=== PATIENT | female | born 1985 | race African-American/Black ===

== ENCOUNTER 2017-12-03 21:25 | Observation (INO) ==
[2017-12-03] MEDS ORDERED: ONDANSETRON 4 MG/2 ML VIAL IV ONE (22:08)
[2017-12-03] MEDS ORDERED: MEPERIDINE 50 MG/1 ML VIAL IV ONE (22:08)
[2017-12-03] MEDS ORDERED: hydrALAZINE 20 MG/1 ML VIAL IV ONE (22:08)
[2017-12-03] MEDS: LACTATED RINGERS 1,000 ML IV SCH (22:42)
[2017-12-03 22:54] LABS: Basophils % 0.6 % (0.0-0.8); Eosinophils # 0.1 10*3/uL (0.0-0.87); Eosinophils % 1.5 % (0.00-10.9); Hematocrit 33.2 VOL% (35.7-47.0); Hemoglobin 9.4 GM/DL (12.0-16.0); Immature Granulocytes % 0.4 %; Immature Granulocytes Absolute 0.03 #; Lymphocytes # 1.5 10*3/uL (1.4-4.0); Lymphocytes % 21.3 % (21.3-54.2); Mean Corpuscular HGB Conc 28.3 GM/DL (32-36); Mean Corpuscular Hemoglobin 19 PG (27-34); Mean Corpuscular Volume 66.8 FL (87-102); Mean Platelet Volume 9.5 FL (9.6-12.0); Monocytes # 0.7 10*3/uL (0.11-0.8); Neutrophils # 4.9 10*3/uL (1.4-7.4); Neutrophils % 67.2 % (38.7-73.9); Platelet Count 285 T/CUMM (130-400); Red Blood Count 4.97 MC/CUMM (3.8-5.5); Red Cell Distribution Width 17.4 % (9.3-17.3); White Blood Count 7.2 T/CUMM (4-12)
[2017-12-03 23:05] LABS: Apearance,Urine Slightly Hazy (Clear); Bilirubin,Urine Negative (Negative); Blood, Urine Negative (Negative); Glucose,Urine (UA) Negative (Negative); Ketones,Urine Negative (Negative); Mucus,Urine Occasional /LPF (Occasional); Nitrite,Urine Negative (Negative); Protein,Urine 30 MG/DL; RBC,Urine 1 /HPF (0-4); Squamous Epithelial Cell,Urine Occasional /HPF (0-10); Urine Color Yellow (Yellow); Urine Specific Gravity 1.012 (1.001-1.035); WBC,Urine 2 /HPF (0-6)
[2017-12-03 23:39] LABS: Albumin 2.4 G/DL (3.4-5.0); Bilirubin,Total 0.4 MG/DL (0.2-1.0); Calcium 8.7 MG/DL (8.5-10.1); Osmolality,Calculated 273.5 MOS/KG (273-304); Potassium 3.8 MMOL/L (3.5-5.1); Total Protein 6.1 G/DL (6.4-8.3); Uric Acid 3.4 MG/DL (2.6-6.0)
[2017-12-03 23:54] LABS: Anisocytosis 1+; Hypochromasia 1+; Poikilocytosis 1+; Polychromasia 1+
[2017-12-04] MEDS ORDERED: hydrALAZINE 20 MG/1 ML VIAL IV ONE
[2017-12-04] MEDS: LABETALOL 200 MG TABLET PO SCH ×3 (00:04→19:46)
[2017-12-04] MEDS: LACTATED RINGERS 1,000 ML IV SCH (09:08)
[2017-12-04] MEDS ORDERED: BETAMETH SODIUM PHOS/ACETATE 30 MG/5 ML VIAL IM SCH (09:30)
[2017-12-04 12:56] VITALS: BP 149/83
[2017-12-04] MEDS ORDERED: LABETALOL 200 MG TABLET PO ONE (17:55)
== END 2017-12-04 19:48 | disposition left against medical advice (07) ==
LOC: N.LD 21:25 → N.LDOUT 21:25 → N.LD 21:29
PROVIDERS: ADMIT Obstetrics & Gynecology; ATTEND Obstetrics & Gynecology

== ENCOUNTER 2017-12-12 13:56 | Inpatient (IN) ==
[2017-12-12] MEDS ORDERED: hydrALAZINE 20 MG/1 ML VIAL IV ONE ×2 (14:51→18:30)
[2017-12-12] MEDS ORDERED: LACTATED RINGERS 1,000 ML IV SCH ×2 (15:00→22:00)
[2017-12-12] MEDS ORDERED: LABETALOL 200 MG TABLET PO SCH (15:00)
[2017-12-12 15:19] LABS: Basophils % 0.3 % (0.0-0.8)
[2017-12-12 15:27] LABS: Eosinophils # 0.1 10*3/uL (0.0-0.87); Hematocrit 29.2 VOL% (35.7-47.0); Hemoglobin 8.4 GM/DL (12.0-16.0); Immature Granulocytes % 0.5 %; Immature Granulocytes Absolute 0.04 #; Lymphocytes # 1.1 10*3/uL (1.4-4.0); Lymphocytes % 15.5 % (21.3-54.2); Mean Corpuscular HGB Conc 28.8 GM/DL (32-36); Mean Corpuscular Hemoglobin 19 PG (27-34); Mean Corpuscular Volume 67.3 FL (87-102); Monocytes # 0.5 10*3/uL (0.11-0.8); Monocytes % 7.3 % (1.7-12.7); Neutrophils # 5.6 10*3/uL (1.4-7.4); Neutrophils % 75.4 % (38.7-73.9); Platelet Count 283 T/CUMM (130-400); Red Blood Count 4.34 MC/CUMM (3.8-5.5); Red Cell Distribution Width 17.6 % (9.3-17.3); White Blood Count 7.4 T/CUMM (4-12)
[2017-12-12 15:36] LABS: INR 0.9; PT Patient Result 9.5 SECS; Partial Thromboplastin Time 25.4 SECS (0-40)
[2017-12-12 15:47] LABS: Alanine Aminotransferase 17 U/L (13-56); Albumin 2.4 G/DL (3.4-5.0); Alkaline Phosphatase 102 U/L (45-117); Aspartate Amino Transferase 24 U/L (0-37); Bilirubin,Total < 0.39 MG/DL (0.2-1.0); Blood Urea Nitrogen 5 MG/DL (7-18); Calcium 8.5 MG/DL (8.5-10.1); Glucose 157 MG/DL (74-106); Osmolality,Calculated 276.5 MOS/KG (273-304); Potassium 3.7 MMOL/L (3.5-5.1); Sodium 139 MMOL/L (136-145); Total Protein 6.1 G/DL (6.4-8.3)
[2017-12-12 15:55] LABS: Anisocytosis 1+; Platelet Estimate Normal; Polychromasia 1+
[2017-12-12] MEDS ORDERED: hydrALAZINE 20 MG/1 ML VIAL IV PRN (18:46)
[2017-12-12] MEDS ORDERED: MAGNESIUM SULF RIDER 4 GM in PREMIX 1 EACH IV ONE (18:46)
[2017-12-12] MEDS ORDERED: MAGNESIUM SULF DRIP 40 GM/1,000 ML ML IV SCH (19:00)
[2017-12-12 19:43] LABS: Apearance,Urine CLEAR (Clear); Bilirubin,Urine Negative (Negative); Blood, Urine Negative (Negative); Glucose,Urine (UA) Negative (Negative); Ketones,Urine 5 mg/dL (Negative); Mucus,Urine Occasional /LPF (Occasional); Nitrite,Urine Negative (Negative); Protein,Urine 30 MG/DL; RBC,Urine 2 /HPF (0-4); Squamous Epithelial Cell,Urine Occasional /HPF (0-10); Urine Color Yellow (Yellow); Urine Specific Gravity 1.018 (1.001-1.035); WBC,Urine <1 /HPF (0-6)
[2017-12-12] MEDS ORDERED: FAMOTIDINE 20 MG/2 ML VIAL IV ONE (20:00)
[2017-12-12] MEDS ORDERED: CITRIC ACID/SODIUM CITRATE 30 ML UDCUP PO ONE (20:00)
[2017-12-12] MEDS ORDERED: OXYTOCIN/LR 30 UNIT/1,000 ML BAG IV ONE (20:30)
[2017-12-12] MEDS ORDERED: OXYTOCIN 10 UNIT/ML VIAL IM ONE (20:30)
[2017-12-12] MEDS ORDERED: fentaNYL 100 MCG/2 ML VIAL ONE (20:38)
[2017-12-12] MEDS ORDERED: OXYTOCIN/LR 20 UNIT/1,000 ML BAG IV ONE ×2 (20:38→21:39)
[2017-12-12] MEDS ORDERED: MORPHINE 10 MG/10 ML VIAL ONE (20:38)
[2017-12-12] MEDS ORDERED: OXYTOCIN 10 UNIT/ML VIAL ONE ×2 (20:38→20:50)
[2017-12-12] MEDS ORDERED: BUPIVACAINE SPINAL 0.75% 2 ML AMP SPINAL ONE (20:38)
[2017-12-12] MEDS ORDERED: FUROSEMIDE 40 MG/4 ML VIAL ONE (21:25)
[2017-12-12 21:31] LABS: Cord Venous Blood HCO3 23.3 MMOL/L; Cord Venous Blood PCO2 48.7 MMHG; Cord Venous Blood PO2 24.3
[2017-12-12 21:39] LABS: Cord Arterial Blood HCO3 22.1 MMOL/L
[2017-12-12] MEDS ORDERED: ONDANSETRON 4 MG/2 ML VIAL IV PRN (21:39)
[2017-12-12] MEDS ORDERED: DEXTROSE 50% 25 GM/50 ML VIAL IV PRN (21:39)
[2017-12-12] MEDS ORDERED: ACETAMINOPHEN 325 MG TABLET PO PRN (21:39)
[2017-12-12] MEDS ORDERED: GLUCAGON 1 MG VIAL IM PRN (21:39)
[2017-12-12] MEDS ORDERED: MAGNESIUM HYDROXIDE SUSP 30 ML UDCUP PO PRN (21:39)
[2017-12-12] MEDS ORDERED: SIMETHICONE CHEW 80 MG TABLET PO PRN (21:39)
[2017-12-12] MEDS ORDERED: RHO(D) IMMUNE GLOBULIN 300 MCG SYRINGE IM ONE (21:39)
[2017-12-13] MEDS: FUROSEMIDE 40 MG/4 ML VIAL IV SCH ×4 (02:57→18:15)
[2017-12-13] MEDS ORDERED: ceFAZolin 2,000 MG in PREMIX 1 EACH IV ONE (07:00)
[2017-12-13 07:42] LABS: Basophils % 0.2 % (0.0-0.8); Eosinophils % 0.3 % (0.00-10.9); Hematocrit 32.1 VOL% (35.7-47.0); Hemoglobin 9.5 GM/DL (12.0-16.0); Immature Granulocytes % 0.4 %; Immature Granulocytes Absolute 0.05 #; Lymphocytes % 7.9 % (21.3-54.2); Mean Corpuscular HGB Conc 29.6 GM/DL (32-36); Mean Corpuscular Hemoglobin 19 PG (27-34); Mean Corpuscular Volume 64.6 FL (87-102); Monocytes # 0.7 10*3/uL (0.11-0.8); Monocytes % 6.1 % (1.7-12.7); Neutrophils # 10.4 10*3/uL (1.4-7.4); Neutrophils % 85.1 % (38.7-73.9); Platelet Count 342 T/CUMM (130-400); Red Blood Count 4.97 MC/CUMM (3.8-5.5); Red Cell Distribution Width 18.3 % (9.3-17.3); White Blood Count 12.2 T/CUMM (4-12)
[2017-12-13] MEDS: DOCUSATE SODIUM 100 MG CAPSULE PO SCH ×2 (08:46→22:42)
[2017-12-13] MEDS: MULTIVITAMIN (PRENATAL) TABLET PO SCH (08:46)
[2017-12-13] MEDS ORDERED: GLUCAGON 1 MG VIAL IM PRN (16:52)
[2017-12-13] MEDS ORDERED: DEXTROSE 50% 25 GM/50 ML VIAL IV PRN (16:52)
[2017-12-13] MEDS: INSULIN REGULAR 100 UNIT/ML SUBCUT SCH (18:42)
[2017-12-14] MEDS: IBUPROFEN 800 MG TABLET PO PRN ×3 (04:31→23:59)
[2017-12-14] MEDS: INSULIN REGULAR 100 UNIT/ML SUBCUT SCH ×3 (06:29→15:05)
[2017-12-14] MEDS: MULTIVITAMIN (PRENATAL) TABLET PO SCH (09:54)
[2017-12-14] MEDS: DOCUSATE SODIUM 100 MG CAPSULE PO SCH ×2 (09:54→20:32)
[2017-12-15] MEDS: INSULIN REGULAR 100 UNIT/ML SUBCUT SCH ×2 (06:54→18:36)
[2017-12-15] MEDS ORDERED: ACETAMINOPHEN/CODEINE 300-30 MG TABLET PO PRN (08:45)
[2017-12-15] MEDS: MULTIVITAMIN (PRENATAL) TABLET PO SCH (08:52)
[2017-12-15] MEDS: DOCUSATE SODIUM 100 MG CAPSULE PO SCH (08:52)
[2017-12-15] MEDS: IBUPROFEN 800 MG TABLET PO PRN (08:52)
[2017-12-15 13:44] VITALS: BP 162/92
[2017-12-15] MEDS ORDERED: DIPH/TET/ACEL PERT BOOSTER VACCINE 0.5 ML VIAL IM ONE (16:20)
== END 2017-12-15 18:15 | disposition home or self-care (01) | DRG 765 ==
LOC: N.LDOUT 13:56 → N.LD 13:58 → N.OB 12-13 16:39
PROVIDERS: ADMIT Obstetrics & Gynecology; ATTEND Obstetrics & Gynecology
PROC: LDCSECT (ICD-10-PCS; 2017-12-12 21:00)

== ENCOUNTER 2018-09-25 15:45 | Inpatient (IN) ==
[2018-09-25 16:29] LABS: Basophils % 0.4 % (0.0-0.8); Eosinophils # 0.2 10*3/uL (0.0-0.87); Eosinophils % 2.3 % (0.00-10.9); Hematocrit 32.4 VOL% (35.7-47.0); Hemoglobin 9.5 GM/DL (12.0-16.0); Immature Granulocytes % 0.6 %; Immature Granulocytes Absolute 0.04 #; Lymphocytes # 1.4 10*3/uL (1.4-4.0); Lymphocytes % 20.3 % (21.3-54.2); Mean Corpuscular HGB Conc 29.3 GM/DL (32-36); Mean Corpuscular Hemoglobin 20 PG (27-34); Mean Corpuscular Volume 69.7 FL (87-102); Monocytes # 0.5 10*3/uL (0.11-0.8); Neutrophils # 4.8 10*3/uL (1.4-7.4); Neutrophils % 69.4 % (38.7-73.9); Platelet Count 306 T/CUMM (130-400); Red Blood Count 4.65 MC/CUMM (3.8-5.5); Red Cell Distribution Width 16.3 % (9.3-17.3); White Blood Count 6.9 T/CUMM (4-12)
[2018-09-25 16:39] LABS: INR 0.9; PT Patient Result 9.5 SECS; Partial Thromboplastin Time 24.7 SECS (0-40)
[2018-09-25 16:52] LABS: Alanine Aminotransferase 14 U/L (13-56); Albumin 2.5 G/DL (3.4-5.0); Alkaline Phosphatase 119 U/L (45-117); Aspartate Amino Transferase 16 U/L (0-37); Bilirubin,Direct < 0.050 MG/DL (0.0-0.20); Bilirubin,Total < 0.39 MG/DL (0.2-1.0); Blood Urea Nitrogen 4 MG/DL (7-18); Calcium 8.2 MG/DL (8.5-10.1); Glucose 121 MG/DL (74-106); Osmolality,Calculated 270.8 MOS/KG (273-304); Potassium 3.1 MMOL/L (3.5-5.1); Sodium 137 MMOL/L (136-145); Total Protein 6.8 G/DL (6.4-8.3); Uric Acid 4.1 MG/DL (2.6-6.0)
[2018-09-25] MEDS: LACTATED RINGERS 1,000 ML IV SCH ×2 (17:29→20:30)
[2018-09-25] MEDS: hydrALAZINE 20 MG/1 ML VIAL IV PRN ×2 (17:53→18:27)
[2018-09-25] MEDS ORDERED: BETAMETH SODIUM PHOS/ACETATE 30 MG/5 ML VIAL IM SCH (18:00)
[2018-09-25] MEDS: LABETALOL 200 MG TABLET PO SCH ×3 (18:48→21:29)
[2018-09-25] MEDS ORDERED: hydrALAZINE 20 MG/1 ML VIAL IV ONE (19:54)
[2018-09-25] MEDS ORDERED: ACETAMINOPHEN 500 MG TABLET PO PRN (23:39)
[2018-09-25] MEDS ORDERED: MAGNESIUM SULF DRIP 40 GM/1,000 ML ML IV SCH (23:45)
[2018-09-26] MEDS ORDERED: CITRIC ACID/SODIUM CITRATE 30 ML UDCUP PO PRN (01:11)
[2018-09-26] MEDS ORDERED: ceFAZolin 3,000 MG in SYRINGE 1 EACH IV PRN (01:11)
[2018-09-26] MEDS ORDERED: FAMOTIDINE 20 MG/2 ML VIAL IV PRN (01:11)
[2018-09-26] MEDS ORDERED: LABETALOL 200 MG TABLET PO SCH (03:00)
[2018-09-26] MEDS ORDERED: ONDANSETRON 4 MG/2 ML VIAL ONE (04:01)
[2018-09-26] MEDS ORDERED: ONDANSETRON 4 MG/2 ML VIAL IV PRN (04:02)
[2018-09-26] MEDS ORDERED: OXYTOCIN/LR 30 UNIT/1,000 ML BAG IV PRN (04:38)
[2018-09-26] MEDS ORDERED: BETAMETH SODIUM PHOS/ACETATE 30 MG/5 ML VIAL IM SCH (06:00)
[2018-09-26] MEDS ORDERED: OXYTOCIN 10 UNIT/ML VIAL ONE (07:21)
[2018-09-26] MEDS ORDERED: LABETALOL 200 MG TABLET PO ONE (08:55)
[2018-09-26] MEDS: LACTATED RINGERS 1,000 ML IV SCH (09:50)
[2018-09-26] MEDS ORDERED: LIDOCAINE 1% 50 ML VIAL ONE (13:36)
[2018-09-26] MEDS ORDERED: miSOPROStol 200 MCG TABLET ONE (13:36)
[2018-09-26] MEDS ORDERED: METHYLERGONOVINE 0.2 MG/1 ML AMP ONE (13:37)
[2018-09-26] MEDS: LABETALOL 200 MG TABLET PO SCH ×2 (14:55→21:02)
[2018-09-26 20:28] LABS: Total Protein 24 Hr Ur Result 490 MG/24HR (0-149.1); Total Volume,Urine 700 ML (400-2000)
[2018-09-26 20:34] LABS: Creatinine 24 Hr Urine Result 1.32 G/24HR (0.60-1.80); Creatinine Clearance Urine 134.03 ML/MIN (70-115)
[2018-09-27] MEDS: LABETALOL 200 MG TABLET PO SCH ×4 (03:01→21:01)
[2018-09-27] MEDS ORDERED: BETAMETH SODIUM PHOS/ACETATE 30 MG/5 ML VIAL ONE (20:42)
[2018-09-28] MEDS: LABETALOL 200 MG TABLET PO SCH ×2 (03:10→09:08)
[2018-09-28 08:30] VITALS: BP 154/83
[2018-09-28] MEDS ORDERED: FLUTICASONE 50 MCG NASAL SPRAY 16 GM BOTTLE BOTH NARES SCH (12:30)
== END 2018-09-28 14:35 | disposition home or self-care (01) | DRG 833 ==
LOC: N.LDOUT 15:45 → N.LD 15:48 → N.OB 09-27 10:36
PROVIDERS: ADMIT Obstetrics & Gynecology; ATTEND Obstetrics & Gynecology

== ENCOUNTER 2018-09-30 16:22 | Inpatient (IN) ==
[2018-09-30 17:12] LABS: Apearance,Urine CLEAR (Clear); Bacteria,Urine Occasional /HPF (Few); Bilirubin,Urine Negative (Negative); Blood, Urine Negative (Negative); Glucose,Urine (UA) Negative (Negative); Ketones,Urine Negative (Negative); Mucus,Urine Occasional /LPF (Occasional); Nitrite,Urine Negative (Negative); Protein,Urine 100 MG/DL; RBC,Urine 1 /HPF (0-4); Squamous Epithelial Cell,Urine Occasional /HPF (0-10); Urine Color Yellow (Yellow); Urine Specific Gravity 1.012 (1.001-1.035); WBC,Urine 3 /HPF (0-6)
[2018-09-30] MEDS ORDERED: ACETAMINOPHEN 500 MG TABLET PO PRN (17:41)
[2018-09-30] MEDS: LABETALOL 200 MG TABLET PO SCH (21:51)
[2018-09-30] MEDS ORDERED: LABETALOL 200 MG TABLET PO SCH (22:00)
[2018-10-01] MEDS ORDERED: FAMOTIDINE 20 MG/2 ML VIAL IV PRN (00:11)
[2018-10-01] MEDS ORDERED: ceFAZolin 3,000 MG in SYRINGE 1 EACH IV PRN (00:11)
[2018-10-01] MEDS ORDERED: CITRIC ACID/SODIUM CITRATE 30 ML UDCUP PO PRN (00:11)
[2018-10-01] MEDS ORDERED: OXYTOCIN/LR 30 UNIT/1,000 ML BAG IV PRN (00:14)
[2018-10-01] MEDS ORDERED: hydrALAZINE 20 MG/1 ML VIAL IV ONE ×2 (00:38→00:48)
[2018-10-01 00:40] LABS: Basophils % 0.4 % (0.0-0.8); Eosinophils # 0.1 10*3/uL (0.0-0.87); Eosinophils % 0.9 % (0.00-10.9); Hematocrit 34.5 VOL% (35.7-47.0); Hemoglobin 10.1 GM/DL (12.0-16.0); Immature Granulocytes % 0.5 %; Immature Granulocytes Absolute 0.05 #; Lymphocytes # 1.9 10*3/uL (1.4-4.0); Lymphocytes % 19.8 % (21.3-54.2); Mean Corpuscular HGB Conc 29.3 GM/DL (32-36); Mean Corpuscular Hemoglobin 20 PG (27-34); Mean Platelet Volume 9.8 FL (9.6-12.0); Monocytes # 0.9 10*3/uL (0.11-0.8); Monocytes % 8.8 % (1.7-12.7); Neutrophils # 6.7 10*3/uL (1.4-7.4); Neutrophils % 69.6 % (38.7-73.9); Platelet Count 305 T/CUMM (130-400); Red Cell Distribution Width 16.3 % (9.3-17.3); White Blood Count 9.6 T/CUMM (4-12)
[2018-10-01] MEDS ORDERED: hydrALAZINE 20 MG/1 ML VIAL ONE (00:41)
[2018-10-01 00:59] LABS: Albumin 2.3 G/DL (3.4-5.0); Bilirubin,Total 0.4 MG/DL (0.2-1.0); Calcium 8.7 MG/DL (8.5-10.1); Potassium 3.1 MMOL/L (3.5-5.1); Total Protein 6.5 G/DL (6.4-8.3)
[2018-10-01] MEDS: LACTATED RINGERS 1,000 ML IV SCH ×2 (01:00→03:50)
[2018-10-01 01:54] LABS: INR 0.9; PT Patient Result 9.6 SECS; Partial Thromboplastin Time 25.1 SECS (0-40)
[2018-10-01] MEDS: LABETALOL 200 MG TABLET PO SCH (04:02)
[2018-10-01] MEDS ORDERED: OXYTOCIN 10 UNIT/ML VIAL IM ONE (07:27)
[2018-10-01 10:07] LABS: Cord Arterial Blood HCO3 29.9 MMOL/L
[2018-10-01 10:11] LABS: Cord Venous Blood HCO3 23.5 MMOL/L
[2018-10-01 10:12] LABS: Cord Venous Blood PO2 16.5
[2018-10-01 10:14] LABS: Apearance,Urine Slightly Hazy (Clear); Bilirubin,Urine Negative (Negative); Blood, Urine Negative (Negative); Glucose,Urine (UA) Negative (Negative); Ketones,Urine 5 mg/dL (Negative); Mucus,Urine Occasional /LPF (Occasional); Nitrite,Urine Negative (Negative); Protein,Urine 30 MG/DL; RBC,Urine <1 /HPF (0-4); Squamous Epithelial Cell,Urine Occasional /HPF (0-10); Urine Color Yellow (Yellow); Urine Specific Gravity 1.021 (1.001-1.035); Urine Urobilinogen < 2.0 EU/DL (0.2-1.0); WBC,Urine 1 /HPF (0-6)
[2018-10-01] MEDS ORDERED: RHO(D) IMMUNE GLOBULIN 300 MCG SYRINGE IM ONE (10:17)
[2018-10-01] MEDS ORDERED: ACETAMINOPHEN 325 MG TABLET PO PRN (10:17)
[2018-10-01] MEDS ORDERED: SIMETHICONE CHEW 80 MG TABLET PO PRN (10:17)
[2018-10-01] MEDS ORDERED: ONDANSETRON 4 MG/2 ML VIAL IV PRN (10:17)
[2018-10-01] MEDS ORDERED: OXYTOCIN/LR 20 UNIT/1,000 ML BAG IV ONE (10:17)
[2018-10-01] MEDS ORDERED: LACTATED RINGERS 1,000 ML IV SCH (10:30)
[2018-10-01] MEDS ORDERED: ceFAZolin 1,000 MG in SYRINGE 1 EACH IV SCH (10:30)
[2018-10-01] MEDS: FUROSEMIDE 40 MG/4 ML VIAL IV SCH ×3 (11:02→22:37)
[2018-10-01] MEDS ORDERED: PHENYLEPHRINE 1 MG/10 ML SYRINGE IV ONE (11:14)
[2018-10-01] MEDS ORDERED: MORPHINE 10 MG/10 ML VIAL ONE (11:15)
[2018-10-01] MEDS ORDERED: BUPIVACAINE SPINAL 0.75% 2 ML AMP SPINAL ONE (11:15)
[2018-10-01] MEDS: hydrALAZINE 20 MG/1 ML VIAL IV SCH ×2 (13:39→14:03)
[2018-10-01] MEDS: ceFAZolin 1,000 MG in SYRINGE 1 EACH IV SCH (17:19)
[2018-10-01] MEDS: POTASSIUM CHLORIDE RIDER 10 MEQ in PREMIX 1 EACH IV PRN ×4 (18:03→21:01)
[2018-10-01] MEDS ORDERED: diphenhydrAMINE CAP 25 MG CAPSULE PO PRN (18:09)
[2018-10-01 20:10] LABS: Basophils % 0.3 % (0.0-0.8); Eosinophils % 0.3 % (0.00-10.9); Hematocrit 35.8 VOL% (35.7-47.0); Immature Granulocytes % 0.5 %; Immature Granulocytes Absolute 0.06 #; Lymphocytes # 1.3 10*3/uL (1.4-4.0); Lymphocytes % 11.6 % (21.3-54.2); Mean Corpuscular HGB Conc 28.8 GM/DL (32-36); Mean Corpuscular Hemoglobin 20 PG (27-34); Mean Corpuscular Volume 70.1 FL (87-102); Mean Platelet Volume 10.1 FL (9.6-12.0); Monocytes # 0.8 10*3/uL (0.11-0.8); Monocytes % 6.6 % (1.7-12.7); Neutrophils # 9.2 10*3/uL (1.4-7.4); Neutrophils % 80.7 % (38.7-73.9); Platelet Count 292 T/CUMM (130-400); Red Blood Count 5.11 MC/CUMM (3.8-5.5); Red Cell Distribution Width 16.3 % (9.3-17.3); White Blood Count 11.4 T/CUMM (4-12)
[2018-10-01 20:11] LABS: Hemoglobin 10.3 GM/DL (12.0-16.0)
[2018-10-02] MEDS: DOCUSATE SODIUM 100 MG CAPSULE PO SCH ×3 (00:17→20:46)
[2018-10-02] MEDS: ceFAZolin 1,000 MG in SYRINGE 1 EACH IV SCH (01:20)
[2018-10-02 05:20] LABS: Basophils % 0.3 % (0.0-0.8); Eosinophils # 0.2 10*3/uL (0.0-0.87); Eosinophils % 1.2 % (0.00-10.9); Hematocrit 30.9 VOL% (35.7-47.0); Hemoglobin 9.1 GM/DL (12.0-16.0); Immature Granulocytes % 0.4 %; Immature Granulocytes Absolute 0.05 #; Lymphocytes # 1.8 10*3/uL (1.4-4.0); Lymphocytes % 12.8 % (21.3-54.2); Mean Corpuscular HGB Conc 29.4 GM/DL (32-36); Mean Corpuscular Hemoglobin 20 PG (27-34); Mean Corpuscular Volume 68.7 FL (87-102); Mean Platelet Volume 9.8 FL (9.6-12.0); Monocytes # 0.8 10*3/uL (0.11-0.8); Neutrophils # 11.1 10*3/uL (1.4-7.4); Neutrophils % 79.3 % (38.7-73.9); Platelet Count 281 T/CUMM (130-400); Red Cell Distribution Width 16.4 % (9.3-17.3)
[2018-10-02] MEDS: MAGNESIUM HYDROXIDE SUSP 30 ML UDCUP PO PRN ×2 (08:32→20:46)
[2018-10-02] MEDS: POTASSIUM CHLORIDE 20 MEQ TABLET PO SCH ×2 (08:32→20:46)
[2018-10-02] MEDS: MULTIVITAMIN (PRENATAL) TABLET PO SCH (08:32)
[2018-10-02] MEDS: METOCLOPRAMIDE 10 MG TABLET PO SCH ×3 (08:43→20:46)
[2018-10-02] MEDS: IBUPROFEN 800 MG TABLET PO PRN (14:07)
[2018-10-02] MEDS: FERROUS SULFATE 325 MG TABLET PO SCH (20:46)
[2018-10-03] MEDS: METOCLOPRAMIDE 10 MG TABLET PO SCH ×3 (03:50→14:29)
[2018-10-03] MEDS: POTASSIUM CHLORIDE 20 MEQ TABLET PO SCH (08:41)
[2018-10-03] MEDS: FUROSEMIDE 40 MG TABLET PO SCH ×2 (08:41→14:29)
[2018-10-03] MEDS: IBUPROFEN 800 MG TABLET PO PRN (08:41)
[2018-10-03] MEDS: MULTIVITAMIN (PRENATAL) TABLET PO SCH (08:41)
[2018-10-03] MEDS: FERROUS SULFATE 325 MG TABLET PO SCH (08:41)
[2018-10-03] MEDS: DOCUSATE SODIUM 100 MG CAPSULE PO SCH (08:41)
[2018-10-03 12:01] VITALS: BP 146/93
== END 2018-10-03 16:25 | disposition home or self-care (01) | DRG 785 ==
LOC: N.LDOUT 16:22 → N.LD 16:23 → N.OB 10-01 14:57
PROVIDERS: ADMIT Obstetrics & Gynecology; ATTEND Obstetrics & Gynecology